=== PATIENT | female | born 1930 | race Two or more races ===

== ENCOUNTER 2017-04-17 20:29 | Inpatient (IN) | payer MEDICARE, MEDICAID ==
[~2017-04-17] VITALS: Ht 152.4 cm; Wt 61.2 kg
[~2017-04-17 20:29] MED LIST: AMLO2.5T PO; ATENOLOL PO; HYDR25TA86 PO; METO25TA6 PO; SIME80TA15 PO; SIME80TA45 PO; SULF1TAB3 PO
--- NOTE | 2017-04-17 20:45 | NUR ---
RECEIIVED PT [id number], AMBULATORY, IN NO DISTRESS,VENEZUELAN SPEAKING BUT DAUGHTER AT BEDSIDE FOR TRANSLATION, C/ OF SUDDEN ONSET OF DIZZINESS WHILE SITTING DOWN, NO NEURO DEFICIT NOTED, DENIES CP/SOB,NAUSEA/VOMITING, PT PLACED ON YARDAGE CONTROL OPERATOR FORMING, BED IN LOWEST POSITION, LOCKED, HOB UP, SR UP X2 FOR SAFETY, CB WITHIN REACH, WILL CONTINUE WITH POC
[2017-04-17 21:36] LABS: *BILIRUBIN,URIN NEGATIVE (NEGATIVE); *BLOOD, URINE Trace-lysed (NEGATIVE); *CLARITY,URINE CLEAR (CLEAR); *COLOR,URINE STRAW (YELLOW); *KETONES,URINE NEGATIVE (NEGATIVE); *PROTEIN,URINE NEGATIVE (NEGATIVE); *UROBILINOGEN,URINE 0.2 E.U./dl (NORMAL); LEUKOCYTE ESTERASE ,URINE NEGATIVE (NEGATIVE); NITRITE, URINE NEGATIVE (NEGATIVE); PH,URINE 7.5 (5.0-8.0); UGLUCOSE NEGATIVE (NEGATIVE)
[2017-04-17 21:37] LABS: BASOPHILS % (AUTO) 0.7 % (0.0-2.0); EOSINOPHILS % (AUTO) 0.3 % (0.0-7.0); HEMATOCRIT 41.1 % (31.2-41.9); LYMPHOCYTES # (AUTO) 1.4 K/uL (20.0-40.0); LYMPHOCYTES % (AUTO) 20.4 % (20.5-51.5); MEAN CORPUSCULAR HEMOGLOBIN 29.2 uug (24.7-32.8); MEAN CORPUSCULAR HGB CONC 34 g/dL (32.3-35.6); MEAN CORPUSCULAR VOLUME 85.8 fL (75.5-95.3); MONOCYTES # (AUTO) 0.7 K/uL (2.0-10.0); MONOCYTES % (AUTO) 9.4 % (0.0-11.0); NEUTROPHILS # (AUTO) 4.9 K/uL (1.8-8.9); NEUTROPHILS % (AUTO) 69.2 % (38.5-71.5); PLATELET COUNT (AUTO) 180 K/uL (179-408); RED BLOOD CELL COUNT(AUTO) 4.79 MIL/uL (3.63-4.92); WHITE BLOOD COUNT (AUTO) 7.1 K/uL (3.8-11.8)
[2017-04-17 21:40] LABS: CARBON DIOXIDE 30 mmol/L (21-32); CHLORIDE 104 mmol/L (98-107); CREATININE 0.9 mg/dL (0.6-1.3); GLUCOSE 116 mg/dL (74-106); POTASSIUM 4.1 mmol/L (3.5-5.1); UREA NITROGEN, BLOOD 24 mg/dL (7-18)
[2017-04-17 21:41] LABS: BACTERIA,URINE NONE SEEN /HPF (NONE SEEN); SQUAMOUS EPITHELIAL CELL,UR FEW /HPF (NONE SEEN); WBC,URINE 0-3 /HPF (0-3)
[2017-04-17 21:54] LABS: ALANINE AMINOTRANSFERASE 35 U/L (14-59); ALKALINE PHOSPHATASE 126 U/L (50-136); ASPARTATE AMINOTRANSFERASE 30 U/L (15-37); BILIRUBIN,DIRECT 0.1 mg/dL (0.0-0.2); BILIRUBIN,TOTAL 0.4 mg/dL (0.2-1.0); TOTAL PROTEIN, SERUM 7.5 g/dL (6.4-8.2)
[2017-04-17] MEDS ORDERED: SERT25TA5 PO (22:24)
[2017-04-17] MEDS ORDERED: METO-302 PO (22:24)
--- NOTE | 2017-04-17 23:25 | NUR ---
PT IN NO DISTRESS, FAMILY AT BEDSIDE
--- NOTE | 2017-04-17 23:56 | NUR ---
REPORT GIVEN TO KRISTIE SIMMS, PT IN NO DISTRESS
--- NOTE | 2017-04-18 01:00 | NUR ---
RECEIVED PATIENT VIA GURNEY FROM ER WITH DAUGHTER AT BEDSIDE. PATIENT IS A/O X4. FARSI SPEAKING, ABLE TO MAKE SIMPLE NEEDS KNOWN, OTHERWISE SILVERWARE ETCHER WILL BE NEEDED FOR PATIENT TEACHINGS/INSTRUCTIONS. PLACED ON TELE ORDERED, SR 80'S. BP 182/77. ALL OTHER VSS. PATIENT DENIES ANY CHEST PAIN OR DISCOMFORT. SKIN INTACT, BUT PATIENT IS REFUSING TO WEAR HOSPITAL GOWN. NO RESP. DISTRESS NOTED. H/L INTACT AND PATENT. ORIENTED PATIENT AND DAUGHTER TO ROOM AND CALL LIGHT. PATIENT VERBALIZED UNDERSTANDING. BED ALARM ON. CALL LIGHT IN REACH. ALL NEEDS ATTENDED.
[2017-04-18 01:15] VITALS: BP 182/77
--- NOTE | 2017-04-18 01:15 | NUR ---
CALLED OUT TO DR. HUMPHRIES TO INFORM HIM PATIENT IS NOW ON THE FLOOR AND TO INFORM HIM OF PATIENTS BLOOD PRESSURE. PATIENTS DAUGHTER WILL NOT LEAVE UNTIL ORDERS ARE IN. ALL NEEDS ATTENDED. WILL CONTINUE TO MONITOR.
[2017-04-18] MEDS ORDERED: ONDANSETRON 4 MG/2 ML VIAL IV PRN (01:30)
[2017-04-18] MEDS ORDERED: ACETAMINOPHEN 325 MG TABLET PO PRN (01:30)
[2017-04-18] MEDS ORDERED: ENALAPRILAT DIHYDRATE INJ 2.5 MG in IV NORMAL SALINE 50 ML IV PRN (01:30)
--- NOTE | 2017-04-18 01:30 | NUR ---
PATIENT GIVEN LOPRESSOR 50MG PO FOR ELEVATED BP. WILL CONTINUE TO MONITOR AND RE-ASSESS.
[2017-04-18] MEDS: METOPROLOL TARTRATE 50 MG TABLET PO SCH ×2 (01:32→09:11)
[2017-04-18] MEDS ORDERED: METOPROLOL TARTRATE 50 MG TABLET ONE (01:46)
[2017-04-18] MEDS ORDERED: ALPRAZOLAM 0.25 MG TABLET PO PRN (03:15)
[2017-04-18 04:30] VITALS: BP 169/62
--- NOTE | 2017-04-18 04:30 | NUR ---
PATIENT AWAKE IN BED. ASSISTED TO THE BATHROOM. PATIENT DENIES ANY CHEST PAIN OR DISCOMFORT. ON TELE SR. BP 169/62. ALL OTHER VSS. CALLED OUT TO NURSING CHAIN HOIST OPERATOR FOR AFTER-HOURS MEDICATION OF VASOTEC 2.5MG IVF ORDERED FOR PRN SBP ABOVE 150. WAITING FOR MEDICATION TO BE BROUGHT UP. ALL NEEDS ATTENDED. BED ALARM ON. CALL LIGHT IN REACH.
--- NOTE | 2017-04-18 05:00 | NUR ---
PATIENT RECEIVING VASOTEC 2.5MG IV, GIVEN PER SUPERVISOR LACE TEARING. WILL CONTINUE TO MONITOR AND WILL RE-ASSESS BP/VITALS. ALL NEEDS ATTENDED.
[2017-04-18] MEDS ORDERED: ENALAPRILAT DIHYDRATE 1.25 MG/1 ML VIAL IV ONE (05:15)
--- NOTE | 2017-04-18 06:28 | NUR ---
PATIENT ASLEEP IN BED. REFUSED AM VITALS THIS MORNING. ON TELE SR. WILL CONTINUE TO MONITOR.
[2017-04-18 06:48] VITALS: BP 118/52
--- NOTE | 2017-04-18 06:50 | NUR ---
RECHECKED PATIENTS BLOOD PRESSURE 118/52. ON TELE SR 57-60. ALL NEEDS ATTENDED.
[2017-04-18] MEDS ORDERED: PANTOPRAZOLE SODIUM 40 MG TABLET.DR PO SCH (07:00)
--- NOTE | 2017-04-18 08:00 | NUR ---
awake alert and verbally responsive refused blood works and daily care. DAUGHTER NOTIFIED TO TALK TO PATIENT THEN AGREED BP TO BE TAKEN AND TOOK BP MEDS AFTER
[2017-04-18] MEDS ORDERED: AMLODIPINE 5 MG TABLET PO SCH (09:00)
[2017-04-18] MEDS ORDERED: ASPIRIN EC 81 MG TABLET.DR PO SCH (09:00)
[2017-04-18 11:42] VITALS: BP 139/48
--- NOTE | 2017-04-18 13:05 | NUR ---
seen by dr coley with dc order. daughter in DC instruction given.
--- NOTE | 2017-04-18 13:08 | NUR ---
DCD HOME STABLE ACCOMPANIED BY DAUGHTER VIA PRIVATE CARE
[2017-04-18] MEDS ORDERED: DOCUSATE SODIUM 100 MG CAPSULE PO SCH (21:00)
[2017-04-18] MEDS ORDERED: DOCUSATE SODIUM 250 MG CAPSULE PO SCH (21:00)
== END 2017-04-18 13:15 | disposition home or self-care (01) | DRG 304 ==
LOC: ER 20:31 → TELE 04-18 00:31
PROVIDERS: ADMIT Internal Medicine; ATTEND Internal Medicine
DX: I16.0 Hypertensive urgency (principal); G93.41 Metabolic encephalopathy; F41.9 Anxiety disorder, unspecified; F32.9 Major depressive disorder, single episode, unspecified; Z90.710 Acquired absence of both cervix and uterus; H81.10 Benign paroxysmal vertigo, unspecified ear; J06.9 Acute upper respiratory infection, unspecified; I10 Essential (primary) hypertension
CPT/HCPCS: 36415; 70030-TC; 70450; 71010; 83605; 85025; 85730; 87040; 87086; 93005; A4663; J3490